=== PATIENT | female | born 1940 | race Caucasian/White ===

== ENCOUNTER → 2016-03-10 | Outpatient (CLI) | payer OTHER ==
--- NOTE | 2016-03-11 08:26 | DX ---
Bone Densitometry Indication: Osteopenia. Technique: DEXA scan was performed on [employer] [facility] [employer] W Bone Densitometer. Comparison Study: No previous bone density test at this location. Results: Lumbar Spine (L1-L4) BMD: 1.072 T-score: 0.2 Total Hip (Right) BMD: 0.709 T-score: -1.9 Femoral Neck (Right) BMD: 0.676 T-score: -1.6 Total Hip (Left) BMD: 0.706 T-score: -1.9 Femoral Neck (Left) BMD: 0.666 T-score: -1.6 Forearm (Left) BMD: 0.491 T-score: -1.4 Conclusion: Osteopenia. Additional Comments: 1. By FRAX calculation, the estimated 10-year risk of any major osteoporotic fracture is 10%. The es timated 10-year risk of hip fracture is 2.4%. 2. Consider repeating this study in 2 years or as clinically indicated. NOTE: The risk of osteoporotic fracture increases approximately two-fold for each 1.0 SD decrease in T-score. The T-score represents the standard deviations from a young normal, same sex, reference po pulation. Low bone density is not the only risk factor for fracture. Clinical factors to consider include fall risk, previous osteoporotic fracture, family history of fractures, smoking, and low body weight. Patients who have an unexpectedly low BMD may need to be evaluated for secondary causes of low bone m ineral density. In comparing the present study to a prior study, lack of a significant increase or decrease in BMD ma y signify efficacy of the patient's present treatment. Bone mineral density measurements performed with densitometers produced by different manufacturers ar e not comparable. For the most reproducible BMD measurement, subsequent exams should be performed on the same densitometer.
== END ==
LOC: BMCIMAGING 11:25
PROVIDERS: ATTEND Family Medicine
DX: Z13.820 Encounter for screening for osteoporosis (principal); M85.80 Other specified disorders of bone density and structure, unspecified site

== ENCOUNTER → 2017-01-30 | Outpatient (CLI) | payer OTHER, MEDICARE | LOC: BMCIMAGING 14:35 | PROVIDERS: ATTEND Family Medicine | DX: Z12.31 Encounter for screening mammogram for malignant neoplasm of breast (principal) | CPT/HCPCS: G0202 ==